=== PATIENT | female | born 1990 | race Asian ===

== ENCOUNTER 2025-01-09 14:01 | Outpatient (AMB) | payer OTHER, SELFPAY ==
--- NOTE | 2025-01-09 14:08 | MHC.OFFVIS ---
Vital Signs 01/09/25 14:11 Height 5 ft Weight 106 lb 8 oz BMI 20.8 BP 108/59 L Blood Pressure Location Lt brachial Position Sitting Pulse 76 Intake Visit Reasons: sebaceous cyst back Intake Note: Patient is seen in office for evaluation and treatment of a sebaceous cyst of the back. Pt c/o: onset 3 yrs, discharge only when squezzing, increase in size, denies pain, redness, or infection Copra Sampler Required: Yes Copra Sampler Language: Italian Copra Sampler Services: Copra Sampler Offered & Declined Copra Sampler Name: Nhut (spouse) Accompanied by: Spouse Allergies No Known Allergies Allergy (Verified 01/09/25 14:14) Medication List - Last Reconciled 01/09/25 by Jaylen Tidwell MD No Known Home Meds HPI Comments Details: 34-year-old female patient presenting for evaluation of a sebaceous cyst of the back. This has been present for least 3 years and has gradually increased in size. She reports some discomfort especially in the cyst is squeezed. She is able to squeeze some whitish discharge on occasion. She denies any previous infection with the need for an incision and drainage. She has requested excision of this sebaceous cyst. [facility] Surgical History Hx of breast augmentation Social History Alcohol intake: never Patient Tobacco Use Status: Never used Tobacco Review of Systems Const All systems reviewed & are unremarkable except as noted in HPI and below Physical Exam Vital Signs: Last Vital Signs Pulse 76 01/09/25 14:11 BP 108/59 L 01/09/25 14:11 BMI result Body Mass Index 20.8 Const General: cooperative and no acute distress Nutritional Appearance: well nourished Orientation/consciousness: patient oriented x3 Limitations: no limitations HEENT Head: Yes normocephalic and Yes atraumatic Ears: hearing grossly normal bilaterally Resp Effort & Inspection: normal respiratory effort, no audible wheezes, no cough and no respiratory distress Cardio Jugular venous distension: no JVD GI Inspection: Yes normal to inspection Back/Spine/Pelvis Back/spine/pelvis image:  1. 0.5 cm raised epidermal inclusion cyst with a central punctum. Tender to palpation but no fluctuance or erythema. Skin Other: Warm, dry, no rash Neuro General: patient oriented x3 Extrem General: Yes no clubbing, cyanosis or edema Assessment & Plan Assessment & Plan (1) Epidermal inclusion cyst: Code(s): L72.0 - Epidermal cyst Category: Medical Plan 34-year-old female patient presenting with an epidermal inclusion cyst of the back which occasionally causes discharge in discomfort. Patient feels the lesion has increased in size in his requested excision. I recommended an excision as an office based procedure under local anesthesia. After discussion of the procedure, risks, and alternatives, she consents to the surgery. Coding Level of Care Code New Pt Level 4 (87718) Diagnoses Epidermal inclusion cyst L72.0
[2025-01-09 14:11] VITALS: BP 108/59; PULSE 76; BMI 20.8
== END 2025-01-09 14:23 | disposition home or self-care (01) ==
PROVIDERS: PCP Internal Medicine; Visit Provider Surgery
DX: L72.0 Epidermal cyst (principal)
CPT/HCPCS: 99204

== ENCOUNTER → 2025-01-09 14:01 | Outpatient (BNVA) | payer OTHER, SELFPAY | PROVIDERS: PCP Internal Medicine; Visit Provider Surgery | DX: L72.0 Epidermal cyst (principal) | CPT/HCPCS: 99202 ==

== ENCOUNTER 2025-02-19 15:00 | Outpatient (AMB) | payer OTHER, SELFPAY ==
--- NOTE | 2025-02-19 15:08 | A.OFFVIS_ITS ---
Vital Signs 3 02/19/25 15:26 Height 5 ft Weight 105 lb 13.15 oz BMI 20.7 Pulse 72 Intake Visit Reasons: excise sebaceaous cyst Intake Note: Patient is seen for office procedure: Excision epidermal inclusion cyst of the back. Pt c/o: no changes, here for removal of cyst Public Relations Counselor Required: Yes Public Relations Counselor Services: Public Relations Counselor Offered & Declined (Boyfriend) Information Interpreted: non-clinical & clinical Accompanied by: Family/Other Allergies No Known Allergies Allergy (Verified 02/19/25 15:26) HPI Comments Details: Patient returns today for excision of an epidermal inclusion cyst of the back. Reports that the cyst increased in size but then decreased in size. She denies any discharge from the wound. [facility] Surgical History Hx of breast augmentation Social History Alcohol intake: never Patient Tobacco Use Status: Never used Tobacco Physical Exam Back/Spine/Pelvis Other: 0.5 cm epidermal inclusion cyst upper right back Back/spine/pelvis image: 2 1. Office Procedures Excision Details: Preoperative diagnosis: Epidermal inclusion cyst right upper back Postoperative diagnosis: Same Procedure: Excision of epidermal inclusion cyst right upper back Surgeon: Jaylen Tidwell MD Spooler Operator: None Anesthesia: Lidocaine 1% with epinephrine Indications for procedure: Painful enlarging epidermal inclusion cyst right back measuring 0.5 cm. Operative findings: 0.5 cm epidermal inclusion cyst Specimen: Epidermal inclusion cyst right upper back Estimated blood loss: Less than 1 mL Complications: None Procedure details: Patient was brought to the procedure room and placed in a prone position. Site of surgery was confirmed by the patient in the right upper back. After assuring informed consent the skin was prepped with Betadine and draped in a sterile fashion. Local anesthesia was then infiltrated circumferentially around the lesion. An elliptical incision oriented transversely was then created over the epidermal inclusion cyst and carried out through subcutaneous tissue and around the cyst wall. Sharp dissection was used to excise the lesion completely. The lesion was passed off the table and sent to pathology for further examination. Light pressure was held to maintain hemostasis. Skin was then closed using interrupted 5 0 nylon sutures. Sterile dressings consisting of 2 x 2 gauze and Tegaderm were then applied. The patient tolerated the procedure well and was discharged home in stable condition. 89505-oeegg/arms/legs < 0.5cm Procedure code (CPT) selection complete Assessment & Plan Assessment & Plan (1) Epidermal inclusion cyst: Code(s): L72.0 - Epidermal cyst Category: Medical Plan 34-year-old female patient presenting with an epidermal inclusion cyst of the right upper back which is occasionally infected. She underwent excision today tolerated the procedure well. She will return in 1 week for suture Orders: Orders 2 Surgical Today L72.0 - Epidermal cyst Coding Level of Care Code Procedure Only Diagnoses Epidermal inclusion cyst L72.0 CPT Codes Trunk/Arms/Legs - CPT: 50905-xitqz/arms/legs < 0.5cm ([id number])
[2025-02-19 15:26] VITALS: PULSE 72; BMI 20.7
== END 2025-02-19 16:25 | disposition home or self-care (01) ==
LOC: HO.HGS 15:01
PROVIDERS: PCP Internal Medicine; Visit Provider Surgery
DX: L72.0 Epidermal cyst (principal)
CPT/HCPCS: 11400

== ENCOUNTER 2025-02-19 15:00 | Outpatient (REF) | payer OTHER, SELFPAY | END 2025-02-19 15:01 | disposition home or self-care (01) | LOC: HO.LNP 15:00 | PROVIDERS: PCP Internal Medicine; Visit Provider Surgery | DX: L72.0 Epidermal cyst (principal) | CPT/HCPCS: 11400; 88304 ==

== ENCOUNTER 2025-03-05 14:05 | Outpatient (AMB) | payer OTHER, SELFPAY ==
--- NOTE | 2025-03-05 14:07 | MHC.OFFVIS ---
Vital Signs 03/05/25 14:14 Height 5 ft Weight 108 lb 6 oz BMI 21.2 BP 105/55 L Blood Pressure Location Rt brachial Position Sitting Pulse 73 Intake Visit Reasons: s/p excise sebaceaous cyst Intake Note: Patient here s/p cyst excision on Rt upper back. Patient c/o: no complaints. WLE (FERNANDA): 02-19-2025 Retail Selling Specialist Required: No Retail Selling Specialist Services: Retail Selling Specialist Offered & Declined (Patient's partner acted as comfort filler) Accompanied by: Other Relationship Allergies No Known Allergies Allergy (Verified 03/05/25 14:15) HPI HPI s/p excise sebaceaous cyst: Details: Presents with partner for evaluation following excision of a cyst on right mid back. Patient has no complaints. Denies pain, denies bleeding/drainage, denies fevers or chills. They have questions about using creams for the scar. [facility] Surgical History (Updated 03/05/25 @ 14:45 by Josué Gomes PA-C) Hx of surgical procedure (02/19/25) Hx of breast augmentation Social History Alcohol intake: never Patient Tobacco Use Status: Never used Tobacco Review of Systems Const All systems reviewed & are unremarkable except as noted in HPI and below Physical Exam Vital Signs: Last Vital Signs Pulse 73 03/05/25 14:14 BP 105/55 L 03/05/25 14:14 BMI result Body Mass Index 21.2 Const General: comfortable and no acute distress Orientation/consciousness: patient oriented x3 Skin Full body images:  1. Cyst excision site, well healed to sutures in place, no surrounding erythema, no fluctuance, nontender. Neuro General: patient oriented x3 Assessment & Plan Assessment & Plan (1) Hx of surgical procedure: Onset Date: 02/19/25 Comment: WLE~ EIC/ Rt upper back Jaylen Amaya Code(s): Z98.890 - Other specified postprocedural states Category: Medical (2) Epidermal inclusion cyst: Code(s): L72.0 - Epidermal cyst Category: Medical Plan 34-year-old female s/p excision of epidermal inclusion cyst on the right midback returning to the office for wound check, suture removal. She has no complaints, denies pain, fever, bleeding or drainage. On exam the site appears well healed, 2 sutures removed in office without complication. No concern for infection at this time. Reviewed pathology results showing benign ruptured epidermal inclusion cyst. To address their questions about using creams for scar healing. I recommended waiting until a month after the procedure to begin using vitamin-E cream. They can get this [id number]. Further follow-up not necessary at this point. Patient can reach out with any concerns in the future. Coding Level of Care Code Est Pt Level 3 (84067) Diagnoses Hx of surgical procedure Z98.890 Epidermal inclusion cyst L72.0
[2025-03-05 14:14] VITALS: BP 105/55; PULSE 73; BMI 21.2
== END 2025-03-05 14:18 | disposition home or self-care (01) ==
LOC: HO.HGS 14:06
PROVIDERS: PCP Internal Medicine; Visit Provider Surgery
DX: Z98.890 Other specified postprocedural states (principal); L72.0 Epidermal cyst
CPT/HCPCS: 99213

== ENCOUNTER → 2025-03-05 14:05 | Outpatient (BNVA) | payer OTHER, SELFPAY | PROVIDERS: PCP Internal Medicine; Visit Provider Surgery | DX: L72.0 Epidermal cyst (principal); Z98.890 Other specified postprocedural states | CPT/HCPCS: 99212 ==